=== PATIENT | male | born 1980 | race Caucasian/White ===

== ENCOUNTER → 2016-05-26 | Outpatient (CLI) | payer BC | END | disposition home or self-care (01) | LOC: LABWHC1 12:09 | PROVIDERS: ATTEND Orthopaedic Surgery | DX: Z01.818 Encounter for other preprocedural examination (principal) | CPT/HCPCS: 86850; 86900; 86901 ==

== ENCOUNTER → 2016-06-04 | Outpatient (CLI) | payer BC ==
[2016-06-04 17:01] LABS: Appearance,Urine Clear (Clear); Bilirubin,Urine Negative (Negative); Glucose,Urine (UA) Negative (Negative); Ketones,Urine Negative (Negative); Leukocyte Esterase,Urine Negative (Negative); Nitrite,Urine Negative (Negative); PH, Urine 6.5 (5.0-8.0); Protein,Urine Negative (Negative); Specific Gravity,Urine 1.017 (1.001-1.035); UA Billing (MACRO vs. MICRO) CHEM; Urobilinogen,Urine <2.0 mg/dL (<2.0)
== END | disposition home or self-care (01) ==
LOC: LABPAT 16:41
PROVIDERS: ATTEND Orthopaedic Surgery
DX: Z01.812 Encounter for preprocedural laboratory examination (principal)
CPT/HCPCS: 81003

== ENCOUNTER 2016-06-05 05:51 | Inpatient (IN) | payer BC ==
[2016-05-29 13:05] VITALS: BMI 27.5
[~2016-06-05 05:51] MED LIST: DEXAMETHASONE SOD PHOSPHATE 10 MG/ML 1 ML VIAL IV ONE; HYDROmorphone 1 MG/ML 1 ML SYRINGE IVP PRN; LACTATED RINGERS 1,000 ML IV SCH; MELOXICAM 7.5 MG TAB PO ONE; MIDAZOLAM 2 MG/2 ML VIAL IV PRN; ONDANSETRON 4 MG/2 ML VIAL IVP ONE; Pre Op ABX Message 1 EACH MISC MISCELLANE ONE; SCOPOLAMINE 1.5MG/72HR PATCH TRANSDERM ONE; TRANEXAMIC ACID 1,000 MG in SODIUM CHLORIDE 0.9% 100 ML IVPB ONE
[2016-06-05] MEDS ORDERED: LIDOCAINE 1% 20 ML VIAL (10MG/ML) FOR IV START INTRADERMA ONE (06:40)
[2016-06-05] MEDS ORDERED: ACETAMINOPHEN TAB 500 MG TAB PO ONE (06:40)
[2016-06-05] MEDS ORDERED: PROPOFOL 10 MG/ML 20 ML VIAL IV ONE (07:49)
[2016-06-05] MEDS ORDERED: MIDAZOLAM 2 MG/2 ML VIAL ONE (07:49)
[2016-06-05] MEDS ORDERED: SODIUM CHLORIDE 0.9% IRRIG 1,000 ML BTL IRRIGATION ONE (07:49)
[2016-06-05] MEDS ORDERED: diphenhydrAMINE 50 MG/ML 1 ML VIAL ONE (07:49)
[2016-06-05] MEDS ORDERED: ePHEDrine 50 MG/ML 1 ML AMP ONE (07:49)
[2016-06-05] MEDS ORDERED: LIDOCAINE 1% INJ 10MG/ML (20 ML MDV) ONE (07:49)
[2016-06-05] MEDS ORDERED: HEPARIN SODIUM,PORCINE 10,000 UNIT/ML 1 ML VIAL ONE (07:49)
[2016-06-05] MEDS: ceFAZolin 2 GM in SODIUM CHLORIDE 0.9% 100 ML IVPB ONE ×2 (07:49→08:13)
[2016-06-05] MEDS ORDERED: SODIUM CHLORIDE 0.9% 100 ML BAG ONE (07:49)
[2016-06-05] MEDS ORDERED: fentaNYL (PF) 50 MCG/ML 2 ML AMP ONE (07:49)
[2016-06-05] MEDS ORDERED: TRANEXAMIC ACID 1,000 MG/10 ML VIAL ONE (07:49)
[2016-06-05] MEDS ORDERED: ceFAZolin 3,000 MG in SODIUM CHLORIDE 0.9% IRRIGATIO 3,000 ML IRRIGATION ONE ×4 (08:13)
[2016-06-05] MEDS ORDERED: ROPIVACAINE 246.25 MG, EPINEPHrine 0.5 MG, KETOROLAC 30 MG, cloNIDine HCL/PF 80 MCG, WA... MISCELLANE ONE ×5 (08:18)
[2016-06-05] MEDS: ROPIVACAINE 246.25 MG, EPINEPHrine 0.5 MG, KETOROLAC 30 MG, cloNIDine HCL/PF 80 MCG, WA... MISCELLANE ONE ×10 (08:23→09:08)
[2016-06-05] MEDS ORDERED: LACTATED RINGERS 1,000 ML IV ONE (08:49)
--- NOTE | 2016-06-05 09:34 | P.OP ---
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 Implants: [place] Omnifit crossfire 0 series 2 insert, 32 mm [place] universal C taper adapter sleeve, +5 mm Thalia Biolox delta universal taper femoral head, 32 mm The articulation is ceramic on polyethylene. Anesthesia: spinal Surgeon: Chad Lovelace Tool Grinder Operator External #1: Brunilda Thayer Estimated Blood Loss (ml): 250 (125 mL returned with Cell Saver) Pathology: none sent Condition: stable Disposition: PACU Indications for Procedure: This is a 35-year-old gentleman has had a right total hip arthroplasty performed proximally 17 years ago. He was originally performed for a failed slipped capital femoral epiphysis pinning. He is done well, but recently has had pain in his right hip with a squeaking noise. X-rays demonstrate complete failure of the polyethylene liner. The femoral and acetabular components appear well fixed on the x-ray. After discussing the surgical and nonsurgical treatment options with her at length, including the potential complications of each, he has decided to proceed with revision of his right total hip arthroplasty with polyethylene liner and head exchange. Informed consent was obtained Operative Findings: The operative findings are consistent with complete failure of the polyethylene of the right total hip arthroplasty. There is a large amount of synovitis and metallosis within the hip. Description of Procedure: Patient was seen and evaluated in the preoperative area, consent was reviewed, and the surgical site was marked with a skin marker. Patient was then brought to the operating room and given prophylactic antibiotics intravenously. 1 g of Tranexamic acid was also given. A spinal anesthetic was administered by the anesthesia department. The patient was then placed on the operative table and placed in the lateral decubitus position with the bony prominences well-padded. The hip area was then prepped and draped in usual sterile fashion. A universal timeout was then performed, which confirmed the patient's name, surgical site, ALLERGIES, and procedure being performed. Next the incision site was located in the lateral aspect of the hip, centered at the tip of the greater trochanter.. The skin and subcutaneous tissues were sharply incised. A portion of his prior incision was utilized, with the scar being excised. Incision was carefully dissected down to the fascia. This fascia was then incised in line with the incision. Next, a Charnley retractor was then placed in the abductors were identified. The anterior one third of the abductors was released off the trochanter and one large sleeve. The anterior hip capsule was then exposed. The capsule was then opened. The proximal femur was then visualized. The hip was then gently dislocated. The femoral head was then removed from the trunnion of the femoral component. The femoral stem was then inspected, and found to be well fixed. Attention was then turned to the acetabulum. The acetabulum was exposed, and the scar tissue was excised sharply with a knife. After the acetabulum was exposed, the polyethylene component was found to be grossly loose. This was then easily removed with a hemostat. The acetabular component was then inspected and found to be well fixed. After adequate debridement of scar tissue, trial liner was then placed. Trial femoral head was then placed and hip was reduced. The leg lengths were checked and found to be equal. Hip was then taken through full range of motion, was stable throughout. Next, the hip was gently dislocated, and the trials were removed. Acetabulum was then reexposed. The appropriate acetabular liner was then opened and impacted with component locking being confirmed. The trunnion was then cleaned and dried and the femoral head was impacted on the trunnion. Hip was then reduced. The hip was then taken through range of motion and found to be stable throughout. Leg lengths were also checked, and found to be equal. The hip was then copiously irrigated with antibiotic solution with pulsatile lavage. The hip was then irrigated with Irrisept solution. The soft tissues were then injected with ropivacaine solution. A second dose of 1 g of Tranexamic acid was given. The abductors were then repaired with #5 Ethibond suture with drill holes to the bone. The fascia was closed with #2 strata fix suture. The subcutaneous tissue was closed with 3-0 Vicryl. The subcuticular tissue was closed with 30 strata fix suture. The skin was then closed with Dermabond tape. The patient was then transferred to the recovery room in stable condition. The Asst. Brunilda Thayer was required due to the complexity of surgery, and the need for skilled surgical instrument technician for positioning, draping, exposure, retraction, and closure of the wound.and closure of the wound.
[2016-06-05] MEDS ORDERED: NALOXONE 0.4 MG/ML 1 ML VIAL IV PRN (09:46)
[2016-06-05] MEDS ORDERED: MAGNESIUM HYDROXIDE 2,400 MG/10 ML CUP PO PRN (09:46)
[2016-06-05] MEDS ORDERED: HYDROcodone/APAP 5-325MG 1 EACH TAB PO PRN ×2 (09:46)
[2016-06-05] MEDS ORDERED: ONDANSETRON 4 MG/2 ML VIAL IVP PRN (09:46)
[2016-06-05] MEDS ORDERED: hydrOXYzine PAMOATE 25 MG CAP PO PRN (09:46)
[2016-06-05] MEDS ORDERED: HYDROmorphone 1 MG/ML 1 ML SYRINGE IVP PRN ×3 (09:46)
[2016-06-05] MEDS ORDERED: DIAZEPAM 5 MG TAB PO PRN ×2 (09:46)
[2016-06-05] MEDS: SODIUM CHLORIDE 0.9% 1,000 ML IV SCH ×2 (11:12→21:49)
--- NOTE | 2016-06-05 11:39 | XR ---
EXAMINATION TYPE: XR Hip Limited RT DATE OF EXAM ORDERED: 06/05/2016 10:09 AM HISTORY: Right hip arthroplasty. COMPARISON: None. FINDINGS: A right hip arthroplasty been performed. Prosthetic elements appear in good position. Ther e is some subcutaneous air present. IMPRESSION: STATUS POST RIGHT HIP ARTHROPLASTY.
[2016-06-05] MEDS: ceFAZolin 2 GM in SODIUM CHLORIDE 0.9% 100 ML IVPB SCH ×2 (17:09→23:16)
[2016-06-05] MEDS ORDERED: SODIUM CHLORIDE 0.9% 1,000 ML IV ONE (19:56)
[2016-06-05] MEDS: ASPIRIN 325 MG TAB PO SCH (20:49)
[2016-06-05] MEDS ORDERED: SENNOSIDES-DOCUSATE SODIUM 1 EACH TAB PO SCH (21:00)
[2016-06-06] MEDS: SODIUM CHLORIDE 0.9% 1,000 ML IV SCH (04:51)
[2016-06-06 07:12] LABS: Basophils % (A) 0 %; CHCM 33.6; Eosinophils # (A) 0.1 k/uL (0-0.7); Eosinophils % (A) 1 %; HCT 39.1 % (39.0-53.0); HDW 2.41; Luc # (Auto) 0.18; Luc % (Auto) 2; Lymphocytes # (A) 2.5 k/uL (1.0-4.8); Lymphocytes % (A) 26 %; MCH 30.8 pg (25.0-35.0); MCHC 33.3 g/dL (31.0-37.0); MCV 92.7 fL (80.0-100.0); Mean Platelet Volume 6.7; Monocytes # (A) 0.7 k/uL (0-1.0); Monocytes % (A) 7 %; Neutrophils # (A) 6.1 k/uL (1.3-7.7); Neutrophils % (A) 63 %; RBC 4.21 m/uL (4.30-5.90); RDW 12.8 % (11.5-15.5); WBC 9.6 k/uL (3.8-10.6); WBC (Perox) 10.15
[2016-06-06] MEDS: ASPIRIN 325 MG TAB PO SCH (07:48)
--- NOTE | 2016-06-06 08:39 | P.DS ---
Providers Date of admission: 06/05/16 05:51 Expected date of discharge: 06/06/16 Attending physician: Chad Lovelace Consults: 06/05/16 09:46 Consult Physician Routine Consulting Provider: Atif Turner Consult Reason/Comments: medical management Do you want consulting provider notified?: Yes Primary care physician: Joel Mullen - Discharge Diagnosis(es) (1) Failed total hip arthroplasty Current Visit: Yes Status: Acute (2) Status post revision of total hip replacement Current Visit: Yes Status: Acute Hospital Course: This is a pleasant 35-year-old gentleman with history of right total hip arthroplasty performed approximately 17 years ago. The patient is recently developed pain and presented to our office. X-rays revealed failure the polyethylene liner. After discussion consideration the patient elected to proceed with revision of right total hip arthroplasty. Patient was admitted to [facility] on 06/05/2016. The procedure was performed without complications or sequelae. Patient has done well postoperatively. His pain well-controlled. He did have episode of lightheadedness and hypotension last night was given a bolus of fluids. He is feeling much better at this time. A like to be discharged home. His dressing is clean dry and intact. Incision looks fine with no erythema or active drainage. Calf is soft and nontender. Able to perform dorsi flexion plantarflexion without difficulty. The patient is orthopedically stable for discharge to home today. He plans to attend outpatient physical therapy. Pertinent Studies: Laboratory Tests 06/06/16 06:49 WBC 9.6 RBC 4.21 L Hgb 13.0 Hct 39.1 MCV 92.7 MCH 30.8 MCHC 33.3 RDW 12.8 Plt Count 183 Neutrophils % 63 Lymphocytes % 26 Monocytes % 7 Eosinophils % 1 Basophils % 0 Neutrophils # 6.1 Lymphocytes # 2.5 Monocytes # 0.7 Eosinophils # 0.1 Basophils # 0.0 Patient Condition at Discharge: Good Plan - Discharge Summary New Discharge Prescriptions: Acetaminophen-Codeine 300-30mg [Tylenol #3] 1 - 2 tab PO Q4-6H PRN #60 tablet PRN Reason: Pain Aspirin 325 mg PO BID #60 tab Sennosides-Docusate Sodium [Senokot-S] 2 tab PO DAILY #60 tablet Discharge Medication List Ibuprofen [Motrin] 200 - 400 mg PO Q6HR PRN 05/29/16 [History] Multivitamin [Men's Multi-Vitamin] 1 tab PO DAILY 05/29/16 [History] Acetaminophen-Codeine 300-30mg [Tylenol #3] 1 - 2 tab PO Q4-6H PRN #60 tablet [Rx] Aspirin 325 mg PO BID #60 tab 06/06/16 [Rx] Sennosides-Docusate Sodium [Senokot-S] 2 tab PO DAILY #60 tablet 06/06/16 [Rx] Follow up Appointment(s)/Referral(s): Chad Lovelace DO [Doctor of Osteopathic Medicine] - 2 Weeks Ambulatory/Diagnostic Orders: Ambulatory Physical Therapy Order [THER.AMB] Location: Determined By Patient Activity/Diet/Wound Care/Special Instructions: Weightbearing as tolerated with walker Follow hip precautions and use abductor pillow as instructed Daily dressing changes Keep incision clean and dry. Okay to shower after 48 hours with no drainage. Do not scrub incision. Leave the Dermabond tape intact Call [facility] with questions or concerns [phone] Discharge Disposition: HOME SELF-CARE
[2016-06-06] MEDS ORDERED: MELOXICAM 7.5 MG TAB PO SCH (09:00)
[2016-06-06 10:28] VITALS: BP 114/57; PULSE 75; RESP 15; TEMP 98.8
== END 2016-06-06 12:49 | disposition home or self-care (01) | DRG 468 ==
LOC: 2ORMAIN 05:51 → 3SUR 10:06
PROVIDERS: ADMIT Orthopaedic Surgery; ATTEND Orthopaedic Surgery
PROC: 0SP909Z Removal of Liner from Right Hip Joint, Open Approach (ICD-10-PCS; 2016-06-05)
PROC: 0SUA09Z Supplement Right Hip Joint, Acetabular Surface with Liner, Open Approach (ICD-10-PCS; 2016-06-05)
PROC: 0SP90JZ Removal of Synthetic Substitute from Right Hip Joint, Open Approach (ICD-10-PCS; 2016-06-05)
PROC: 0SR904A Replacement of Right Hip Joint with Ceramic on Polyethylene Synthetic Substitute, Uncemented, Open Approach (ICD-10-PCS; principal; 2016-06-05 07:30)
DX: T84.090A Other mechanical complication of internal right hip prosthesis, initial encounter (principal); I95.9 Hypotension, unspecified; M65.851 Other synovitis and tenosynovitis, right thigh; Y79.2 Prosthetic and other implants, materials and accessory orthopedic devices associated with adverse incidents
CPT/HCPCS: 73501; 81003; 85025; 86850; 86891; 86900; 86901